=== PATIENT | female | born 1990 | race Two or more races ===

== ENCOUNTER 2019-02-08 08:02 | Emergency (ER) | payer SELFPAY ==
[~2019-02-08] VITALS: Ht 152.4 cm; Wt 81.0 kg
[2019-02-08] MEDS ORDERED: HYDROcodone/APAP 5/325 TABLET ONE (08:29)
[2019-02-08] MEDS ORDERED: HYDROcodone/APAP 5/325 TABLET PO ONE (08:30)
[2019-02-08 08:38] VITALS: BP 109/73
== END 2019-02-08 09:08 | disposition home or self-care (01) ==
LOC: ED 08:55
DX: K08.89 Other specified disorders of teeth and supporting structures (principal); R11.0 Nausea; Z98.890 Other specified postprocedural states
CPT/HCPCS: 99283